=== PATIENT | male | born 1970 | race Caucasian/White ===

== ENCOUNTER 2016-11-29 07:56 | Emergency (ER) | payer MEDICAID ==
[~2016-11-29] VITALS: Ht 165.1 cm; Wt 95.3 kg
[2016-11-29 08:00] VITALS: BP 111/57
--- NOTE | 2016-11-29 08:02 | NUR ---
Patient ambulated to bed 08.
--- NOTE | 2016-11-29 08:04 | NUR ---
Dr. Reyes evaluating patient at bedside.
[2016-11-29] MEDS ORDERED: MECLIZINE 25 MG TAB PO ONE (08:10)
[2016-11-29] MEDS ORDERED: DIAZEPAM 5 MG TAB PO ONE (08:10)
--- NOTE | 2016-11-29 08:17 | NUR ---
LAB at bedside.
--- NOTE | 2016-11-29 08:22 | NUR ---
46/M presents to ED for evaluation of dizziness for the past 2 days. Patient denies any pain at this time. Denies N/V/D. Denies fever or chills. Denies chest pain or SOB. Patient denies any other symptoms. Patient is AOX4, [place] speaking, clear and coherent speech. Eyes PERRLA from 4mm to 3mm. 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 VSS. Patient is calm and relaxed at this time. Placed in a position of comfort. All needs met at this time. No signs of distress.
[2016-11-29 08:38] LABS: ANION GAP 11.1 (8-16); CALCIUM 8.9 mg/dL (8.5-10.1); CARBON DIOXIDE 28.7 mmol/L (21-32); POTASSIUM 3.8 mmol/L (3.5-5.1)
[2016-11-29 09:34] VITALS: BP 134/62
--- NOTE | 2016-11-29 09:35 | NUR ---
Patient discharged with v/s stable. Written and verbal after care instructions given and explained. Patient alert, oriented and verbalized understanding of instructions. Ambulatory with steady gait. All questions addressed prior to discharge. ID band removed. Patient advised to follow up with PMD. Rx of MECLAZINE given. Patient educated on indication of medication including possible reaction and side effects. Opportunity to ask questions provided and answered.
== END 2016-11-29 09:35 | disposition home or self-care (01) ==
LOC: MED 07:56
DX: R42 Dizziness and giddiness (principal); H93.11 Tinnitus, right ear; E78.00 Pure hypercholesterolemia, unspecified; Z98.890 Other specified postprocedural states
CPT/HCPCS: 36415; 80048; 99283; J8597

== ENCOUNTER 2017-03-28 09:13 | Emergency (ER) | payer MEDICAID ==
[~2017-03-28] VITALS: Ht 165.1 cm; Wt 95.3 kg
[2017-03-28 10:06] VITALS: BP 123/72
--- NOTE | 2017-03-28 10:10 | NUR ---
PT TO OVERFLOW.
--- NOTE | 2017-03-28 10:12 | NUR ---
PATIENT PRESENTS TO ED WITH C/O RASH TO UPPER BACK . PT STATES HE NOTICED THE RASH 5 DAYS AGO AND IT HAS SINCE GOTTEN WORSE . DENIES N/V/D; PINK, SLIGHTLY RAISED RASH NOTED ACROSS UPPER BACK, SKIN IS OTHERWISE PINK/WARM/DRY; AAOX4 WITH EVEN AND STEADY GAIT; LUNGS CLEAR BL; HR EVEN AND REGULAR; PT DENIES ANY FEVER, CP, SOB, OR COUGH AT THIS TIME; PATIENT STATES PAIN OF 0/10 AT THIS TIME; VSS; PATIENT POSITIONED IN OVERFLOW. ER MD MADE AWARE OF PT STATUS.
[2017-03-28 10:33] VITALS: BP 123/72
--- NOTE | 2017-03-28 10:33 | NUR ---
Patient discharged with v/s stable. Written and verbal after care instructions given and explained. Patient alert, oriented and verbalized understanding of instructions. Ambulatory with steady gait. All questions addressed prior to discharge. ID band removed. Patient advised to follow up with PMD. Rx of BENADRYL given. Patient educated on indication of medication including possible reaction and side effects. Opportunity to ask questions provided and answered.
== END 2017-03-28 10:33 | disposition home or self-care (01) ==
LOC: MED 09:13
DX: J06.9 Acute upper respiratory infection, unspecified (principal); B34.9 Viral infection, unspecified
CPT/HCPCS: 99282

== ENCOUNTER 2021-08-01 07:55 | Emergency (ER) | payer MEDICAID ==
[~2021-08-01] VITALS: Ht 165.1 cm; Wt 100.7 kg
[~2021-08-01 07:55] MED LIST: NAPR-54 PO
[2021-08-01 08:06] VITALS: BP 136/74
[2021-08-01] MEDS ORDERED: OFLO5SOL27 OT ×2 (08:29→15:18)
[2021-08-01] MEDS ORDERED: NAPR-54 PO ×2 (08:29→15:18)
[2021-08-01 09:02] VITALS: BP 136/74
--- NOTE | 2021-08-01 09:02 | NUR ---
PER ERMD PT RIGHT EAR WAS IRRIGATED WITH SALINE MIXED WITH hydroperoxide
--- NOTE | 2021-08-01 09:17 | NUR ---
Patient discharged with v/s stable. Written and verbal after care instructions given and explained. Patient alert, oriented and verbalized understanding of instructions. Ambulatory with steady gait. All questions addressed prior to discharge. ID band removed. Patient advised to follow up with PMD. Rx of NAPROXEN, OFLOXACIN given. Patient educated on indication of medication including possible reaction and side effects. Opportunity to ask questions provided and answered.
== END 2021-08-01 09:17 | disposition home or self-care (01) ==
LOC: MED 07:55
DX: H60.501 Unspecified acute noninfective otitis externa, right ear (principal); Z79.899 Other long term (current) drug therapy; Z98.890 Other specified postprocedural states
CPT/HCPCS: 99283